=== PATIENT | female | born 1975 | race American Indian/Alaskan Native ===

== ENCOUNTER 2021-07-19 10:25 | Outpatient (CLI) | payer OTHER ==
--- NOTE | 2021-07-19 11:49 | XRay Report ---
RIGHT KNEE HISTORY: Right knee pain. COMPARISON: None. TECHNIQUE: 2 views of the right knee obtained. FINDINGS: Bones: No acute fracture or dislocation. Joint spaces: Mild to moderate osteoarthritic change which appears worse within the lateral and valles lofemoral compartments. Soft tissues: No significant abnormality. Additional findings: None. IMPRESSION: Right knee without evidence of acute osseous injury. Mild to moderate osteoarthritic change which appears worse within the lateral and patellofemoral comp artments. Signer Name: Miguel Mendoza MD Signed: 07/19/2021 11:44 AM Workstation Name: [id number]
--- NOTE | 2021-07-19 11:50 | XRay Report ---
CERVICAL SPINE HISTORY: Pain. COMPARISON: None. TECHNIQUE: 4 views of the cervical spine obtained. FINDINGS: Vertebrae: There is straightening of the cervical spine which may be related to patient positioning o r muscle spasm. No evidence of acute fracture or vertebral body subluxation. Disc Spaces:Mild degenerative change in the lower cervical spine at C5/C6 and C6/C7. Facet Joints:No significant abnormality. Prevertebral Soft Tissues:No significant abnormality. Additional findings: None. IMPRESSION: Cervical spine without evidence of acute osseous injury. Mild degenerative change at C5/C6 and C6/C7. If pain persists, further evaluation with MRI may be con sidered. There is straightening of the cervical spine which may be related to patient positioning or muscle sp asm. Signer Name: Miguel Mendoza MD Signed: 07/19/2021 11:46 AM Workstation Name: [id number]
--- NOTE | 2021-07-19 11:53 | XRay Report ---
LUMBAR SPINE HISTORY: Back pain. COMPARISON: None. TECHNIQUE: 3 view(s) of the lumbar spine obtained. FINDINGS: Vertebrae: 5 nonrib-bearing lumbar vertebral bodies. Vertebral body heights are preserved without ila dence of acute fracture or vertebral body subluxation. Disc Spaces:No significant abnormality. Facet Joints:Moderate lower lumbar facet arthropathy. Prevertebral Soft Tissues:No significant abnormality. Additional findings: None. IMPRESSION: Lumbar spine without evidence of acute osseous injury. Intervertebral disc spaces appear relatively preserved. There is moderate lower lumbar facet arthropa thy. If pain persists, further evaluation with MRI may be considered. Signer Name: Miguel Mendoza MD Signed: 07/19/2021 11:49 AM Workstation Name: [id number]
--- NOTE | 2021-07-19 11:55 | XRay Report ---
RIGHT HIP HISTORY: Right hip pain. COMPARISON: None. TECHNIQUE: 2 views of the right hip obtained. FINDINGS: Bones: No acute fracture or dislocation. Joint spaces: Mild right greater than left superior joint space narrowing. Soft tissues: No significant abnormality. Additional findings: None. IMPRESSION: Right hip without evidence of acute osseous injury. Mild right greater than left superior joint space narrowing at the hips. Signer Name: Miguel Mendoza MD Signed: 07/19/2021 11:51 AM Workstation Name: [id number]
== END 2021-07-19 10:26 | disposition home or self-care (01) ==
LOC: XRAY 10:25
PROVIDERS: ATTEND Internal Medicine
DX: M16.11 Unilateral primary osteoarthritis, right hip (principal); M47.814 Spondylosis without myelopathy or radiculopathy, thoracic region; M47.812 Spondylosis without myelopathy or radiculopathy, cervical region; M17.11 Unilateral primary osteoarthritis, right knee
CPT/HCPCS: 72040; 72100